=== PATIENT | male | born 1950 | race Caucasian/White ===

== ENCOUNTER → 2016-12-06 | Outpatient (CLI) | payer OTHER ==
[~2016-12-06] MED LIST: DEXTROSE 5% IN WATE 1000ML INJ 1,000 ML IV SCH; FURO20TA PO; INSULIN HUMAN REGULAR 1,000 UNITS/10 ML VIAL SQ PRN; LACTATED RINGER'S 1000 ML IV SCH; LEVO75TA3 PO; METOPROLOL TARTRATE 25 MG TAB PO PRN; POTA10CA PO; PROPOFOL 200 MG/20 ML AMP IV ONE; SIMV40TA PO; SODIUM CHLORID 0.9% 500 ML IV SCH
--- NOTE | 2016-12-06 09:48 | PD.HP.UP ---
H&P Update Note The Pre-Admit History and Physical Examination regarding the above named patient was reviewed (including, but not limited to, vital signs, heart, lungs, co-morbid conditions), and upon re-examination it is noted that: the patient's condition has not significantly changed since the last examination. Wallace Garrison MD Dec 06, 2016 09:48
[2016-12-06 10:06] VITALS: BP 139/79; PULSE 72; RESP 18; TEMP 98.1; O2SAT 94
[2016-12-06 12:10] VITALS: BP 157/92; PULSE 74; RESP 18; TEMP 97.2; O2SAT 94
--- NOTE | 2016-12-06 14:55 | EKG ---
Date Performed: 12/06/2016 Time Performed: 10:21:43 PTAGE: 66 years EKG: Sinus rhythm LOW QRS VOLTAGE IN PRECORDIAL LEADS INCOMPLETE RIGHT BUNDLE BRANCH BLOCK NONSPECIFIC T-WAVE ABNORMAL ITY BORDERLINE ECG NO PREVIOUS TRACING DOCTOR: Ed Martinez Interpretating Date/Time 12/06/2016 14:54:00
--- NOTE | 2016-12-12 18:28 | MR ---
cc: MED RODRÍGUEZ M.D. DATE: December 06, 2016 PREOPERATIVE DIAGNOSIS Rectal bleeding colon cancer screening abdominal pain. PROCEDURE Colonoscopy to cecum. Anoscopy POSTOPERATIVE DIAGNOSIS 1. Normal cecum, ileocecal valve. 2. Diverticulosis rectosigmoid left colon. 3. Grade [address] Rodríguez PROCEDURE The patient was placed in the left lateral decubitus position. After adequate anesthesia sedation rectal exam confirmed the emptiness of the rectal vault. Olympus colonoscope was introduced on Pentax colonoscope was introduced into the rectum that is easily under direct vision with some abdominal pressure the scope around to the cecum, ileocecal valve was normal. There are no vascular abnormalities in the cecum. Colonoscope was then gradually withdrawn visualizing the culture surface throughout the distal colon. No inflammatory changes were seen. Diverticulosis was noted in the rectosigmoid. No luminal narrowing. No polyps were seen. Next, the anoscope was inserted in all three hemorrhoidal cushions were examined noting some very large internal hemorrhoids in the right posterior cushion. The other to cushions were quite large but no sign of active bleeding or ulcerations were noted. No thrombosis was noted. The patient tolerated the procedure quite well and was brought to recovery room in stable condition. MD VIVI Brooks/sachin /10:31 PM /6:21 PM
== END ==
LOC: HSDC 09:04
PROVIDERS: ATTEND Colon & Rectal Surgery
DX: K62.5 Hemorrhage of anus and rectum (principal); K57.30 Diverticulosis of large intestine without perforation or abscess without bleeding; K64.2 Third degree hemorrhoids; Z86.010 Personal history of colon polyps; G47.33 Obstructive sleep apnea (adult) (pediatric); Z01.810 Encounter for preprocedural cardiovascular examination
CPT/HCPCS: 93005